=== PATIENT | female | born 1960 | race American Indian/Alaskan Native ===

== ENCOUNTER 2018-02-14 13:05 | Emergency (ER) | payer MEDICARE, OTHER ==
[2018-02-14 13:05] VITALS: BMI 63.8
[2018-02-14 14:00] LABS: BASO % 0.3 % (0.0-2.0); EOS # 0.2 K/uL (0.0-0.7); EOS % 1.5 % (0.0-4.0); HEMOGLOBIN 13.3 g/dL (11.0-16.0); LYMPH # 2.2 K/uL (1.0-4.3); LYMPH % 19.5 % (20.0-40.0); MEAN CELL VOLUME 86.2 fL (81.0-99.0); MEAN CORPUSCULAR HEMOGLOBIN 29.3 pg (27.0-31.0); MEAN CORPUSCULAR HGB CONC 33.9 g/dL (33.0-37.0); MEAN PLATELET VOLUME 8.2 fL (7.2-11.7); MONO # 0.7 K/uL (0.0-0.8); MONO % 6.4 % (0.0-10.0); NEUT # 8.1 K/uL (1.8-7.0); NEUT % 72.3 % (50.0-75.0); RBC 4.56 Mil/uL (3.80-5.20); RED CELL DISTRIBUTION WIDTH 15.4 % (11.5-14.5); WHITE BLOOD COUNT 11.2 K/uL (4.8-10.8)
[2018-02-14] MEDS ORDERED: Sodium Chloride 0.9% 1,000 ML IV ONE (14:00)
[2018-02-14 14:12] LABS: ALBUMIN 3.8 g/dL (3.5-5.0); ALT/SGPT 19 U/L (9-52); AST/SGOT 22 U/L (14-36); BLOOD UREA NITROGEN 21 mg/dL (7-17); CALCIUM 9.5 mg/dl (8.6-10.4); GFR AFRICAN-AMERICAN > 60; GFR NON-AFRICAN AMERICAN > 60
--- NOTE | 2018-02-14 14:12 | RAD ---
HISTORY: Palpations COMPARISON: Chest radiograph dated 01/08/2016 TECHNIQUE: Chest PA and lateral FINDINGS: LUNGS: No active pulmonary disease. PLEURA: No significant pleural effusion identified. No pneumothorax apparent. CARDIOVASCULAR: Atherosclerotic aortic calcifications. Cardiomediastinal silhouette stably enlarged. OSSEOUS STRUCTURES: Unchanged. VISUALIZED UPPER ABDOMEN: Normal. OTHER FINDINGS: None. IMPRESSION: No active disease.
--- NOTE | 2018-02-14 14:52 | C.PDOC ---
History Of Present Illness 57yo female, presents to ED for evaluation of sudden onset dizziness, lightheadedness described as a room spinning sensation since 1130 this morning. Patient also reports associated 2 episodes of bilious vomiting. She denies any such episodes in the past. She is currently on a Xarelto regimen as well. She has no other medical complaints. PMD: Harmeet White Time Seen by Provider: 02/14/18 13:23 Chief Complaint (Nursing): Dizziness/Lightheaded History Per: Patient History/Exam Limitations: no limitations Onset/Duration Of Symptoms: Hrs (11:30 am today) Current Symptoms Are (Timing): Still Present Associated Symptoms Preceding Syncopal Episode: Lightheadedness, Vertigo Worse With Change In Head Position Past Medical History Reviewed: Historical Data, Nursing Documentation, Vital Signs Vital Signs: Last Vital Signs Temp 98.2 F 02/14/18 21:40 Pulse 82 02/14/18 21:40 Resp 22 02/14/18 21:40 BP 176/82 H 02/14/18 21:40 Pulse Ox 92 L 02/14/18 21:45 - Medical History PMH: Asthma, Atrial Fibrillation, Bronchitis, Diabetes, HTN, Hypercholesterolemia, Hyperlipidemia, Kidney Stones Surgical History: Denies: Pacemaker Other Surgeries: partial hysterectomy not involving ovaries Family History: States: No Known Family Hx, Unknown Family Hx - Social History Hx Tobacco Use: No Hx Alcohol Use: No Hx Substance Use: No - Immunization History Hx Tetanus Toxoid Vaccination: No Hx Influenza Vaccination: No Hx Pneumococcal Vaccination: No Review Of Systems Except As Marked, All Systems Reviewed And Found Negative. Constitutional: Negative for: Fever, Chills Eyes: Negative for: Pain, Vision Change ENT: Negative for: Ear Pain, Ear Discharge, Nose Pain Cardiovascular: Positive for: Light Headedness. Negative for: Chest Pain, Palpitations, Orthopnea, Paroxysmal Noc. Dyspnea Respiratory: Negative for: Cough, Shortness of Breath, Hemoptysis, SOB with Excertion, Pleuritic Pain, Sputum Gastrointestinal: Positive for: Vomiting. Negative for: Abdominal Pain, Diarrhea Genitourinary: Negative for: Dysuria Skin: Negative for: Rash Neurological: Positive for: Dizziness. Negative for: Weakness Psych: Negative for: Anxiety, Depression Physical Exam - Physical Exam Appears: Non-toxic, No Acute Distress, Other (morbidly obese) Skin: Normal Color, Warm, Dry Head: Atraumatic, Normacephalic Eye(s): bilateral: Normal Inspection Ear(s): Bilateral: Normal Nose: Normal Oral Mucosa: Moist Tongue: Normal Appearing Lips: Normal Appearing Gingiva: Normal Appearing Throat: Normal Neck: Normal, Normal ROM, Supple Cardiovascular: Rhythm Regular Respiratory: Normal Breath Sounds Gastrointestinal/Abdominal: Normal Exam, Soft, No Tenderness Back: Normal Inspection Extremity: Normal ROM, No Deformity Neurological/Psych: Oriented x3, Normal Speech, Normal Cognition, Normal Cranial Nerves, Cerebellar Signs (normal), Normal Motor (5/5 motor strength bilateral lower extremities; 5/5 processing associate strength bilateral upper extremities), Normal Sensation Gait: Steady ED Course And Treatment - Laboratory Results Result Diagrams: 02/14/18 13:57 02/14/18 13:57 O2 Sat by Pulse Oximetry: 92 Medical Decision Making Medical Decision Making: Impression: Dizziness/lightheadedness Plan: -- Labs -- CXR -- EKG -- IV Fluids -- IV Reglan -- Meclizine PO Time: 1533 Labs reviewed with no clinically significant abnormalities. CXR reviewed and indicates questionable right lower lobe pneumonia. Time: 1723 On re-evaluation, patient with persistent dizziness, worse with getting up. Valium 5mg PO and Zofran OTD 4mg PO given. CT Head w/o contrast ordered. \ Time: 1800 CT Head FINDINGS: HEMORRHAGE: No intracranial hemorrhage. BRAIN: No mass effect or edema. No atrophy or chronic microvascular ischemic changes. VENTRICLES: Unremarkable. No hydrocephalus. CALVARIUM: Unremarkable. PARANASAL SINUSES: Unremarkable as visualized. No significant inflammatory changes. MASTOID AIR CELLS: Unremarkable as visualized. No inflammatory changes. OTHER FINDINGS: None. IMPRESSION: No acute intracranial abnormalities. No significant findings to account for the clinical presentation. Time: 2117 Patient awake, alert and oriented x 3 with steady gait. She is ambulatory and denies any dizziness. Stable for discharge home. Disposition Counseled Patient/Family Regarding: Diagnosis - Disposition Referrals: Alondra White MD [Staff Provider] - Disposition: HOME/ ROUTINE Disposition Time: 21:44 Condition: GOOD Additional Instructions: return if symptoms return or worsen Prescriptions: Meclizine HCl 25 mg PO TID PRN 3 Days #9 tablet PRN Reason: Dizziness Instructions: Vertigo (a Type of Dizziness) Forms: [facility] (Armenian) - Clinical Impression Clinical Impression: Vertigo - Scribe Statement The provider has reviewed the documentation as recorded by the Scribe (Rosey Akbar) Provider Attestation: All medical record entries made by the Scribe were at my direction and personally dictated by me. I have reviewed the chart and agree that the record accurately reflects my personal performance of the history, physical exam, medical decision making, and the department course for this patient. I have also personally directed, reviewed, and agree with the discharge instructions and disposition.
[2018-02-14 16:03] LABS: SQUAMOUS EPITHIAL 9 /hpf (0-5); URINE BACTERIA RARE (<OCC); URINE BILIRUBIN NEGATIVE (NEGATIVE); URINE BLOOD 1+ (NEGATIVE); URINE CLARITY Hazy (Clear); URINE COLOR Yellow (YELLOW); URINE GLUCOSE (UA) NORMAL (Normal); URINE LEUKOCYTE ESTERASE 3+ Leu/uL (Negative); URINE PROTEIN NEGATIVE (NEGATIVE); URINE UROBILINOGEN NORMAL mg/dL (0.2-1.0)
--- NOTE | 2018-02-14 18:21 | CT ---
PROCEDURE: CT HEAD WITHOUT CONTRAST. HISTORY: vertigo COMPARISON: None available. TECHNIQUE: Axial computed tomography images were obtained through the head/brain without intravenous contrast. Coronal and sagittal reconstructed images. Radiation dose: Total exam DLP = 1162.06 mGy-cm. This CT exam was performed using one or more of the following dose reduction techniques: Automated exposure control, adjustment of the mA and/or kV according to patient size, and/or use of iterative reconstruction technique. FINDINGS: HEMORRHAGE: No intracranial hemorrhage. BRAIN: No mass effect or edema. No atrophy or chronic microvascular ischemic changes. VENTRICLES: Unremarkable. No hydrocephalus. CALVARIUM: Unremarkable. PARANASAL SINUSES: Unremarkable as visualized. No significant inflammatory changes. MASTOID AIR CELLS: Unremarkable as visualized. No inflammatory changes. OTHER FINDINGS: None. IMPRESSION: No acute intracranial abnormalities. No significant findings to account for the clinical presentation.
[2018-02-14 21:41] VITALS: BP 176/82; PULSE 82; RESP 22; TEMP 98.2
[2018-02-14 21:45] VITALS: O2SAT 92
--- NOTE | 2018-02-15 12:27 | CARD ---
APPROVED REPORT EKG Measurement Heart [id number] <Conclusion> Normal sinus rhythm Normal ECG
== END 2018-02-14 22:08 | disposition home or self-care (01) ==
LOC: C.ER 13:05
DX: R42 Dizziness and giddiness (principal)
CPT/HCPCS: 70450; 71046; 80053; 81001; 82948; 84484; 85025; 93005; 96374; 99285; J2765; J7040

== ENCOUNTER 2018-04-23 21:56 | Emergency (ER) | payer MEDICARE, OTHER ==
[2018-04-23 21:57] VITALS: BMI 63.8
[2018-04-23 22:12] VITALS: BP 146/83; PULSE 90; RESP 16; TEMP 98; O2SAT 100
--- NOTE | 2018-04-23 23:09 | C.PDOC ---
History Of Present Illness 57 yo female BIBA for evaluation of lower lip contusion, Left knee and Right hand contusion sustained [employer] after sustained mechanical fall at home. Pt sts, tripped and fell down, landed onto Left side of body," hit my Left knee hard". Pt admits, was unable to bear weight on Left leg due to pain over Left knee after the injury. Otherwise, pt denies head injury, LOC, syncope, headache, dizziness, visual changes,focal deficits, neck pain, CP, SOB, dyspnea, drooling , abd. pain, N/V, denies obvious deformity, sensory or vascular deficits to B/L UEs and LEs. At the time of evaluation, AAO#3, not in any apparent distress. Time Seen by Provider: 04/23/18 22:01 Chief Complaint (Nursing): Lower Extremity Problem/Injury History Per: Patient Past Medical History Reviewed: Historical Data, Nursing Documentation, Vital Signs Vital Signs: Last Vital Signs Temp 98 F 04/23/18 22:08 Pulse 90 04/23/18 22:08 Resp 16 04/23/18 22:08 BP 146/83 04/23/18 22:08 Pulse Ox 100 04/23/18 23:14 - Medical History PMH: Asthma, Atrial Fibrillation, Bronchitis, Diabetes, HTN, Hypercholesterolemia, Hyperlipidemia, Kidney Stones Other PMH: Morbid obesity Surgical History: Denies: Pacemaker Family History: States: Unknown Family Hx - Social History Hx Tobacco Use: No Hx Alcohol Use: No Hx Substance Use: No - Immunization History Hx Tetanus Toxoid Vaccination: No Hx Influenza Vaccination: No Hx Pneumococcal Vaccination: No Review Of Systems Except As Marked, All Systems Reviewed And Found Negative. Constitutional: Negative for: Fever, Chills Eyes: Negative for: Vision Change ENT: Negative for: Ear Discharge, Nose Discharge, Throat Pain Cardiovascular: Negative for: Chest Pain Respiratory: Negative for: Cough, Shortness of Breath, Wheezing Gastrointestinal: Negative for: Nausea, Vomiting, Abdominal Pain, Diarrhea Genitourinary: Negative for: Dysuria, Incontinence Musculoskeletal: Positive for: Hand Pain (Right thumb), Leg Pain (Left knee pain ). Negative for: Neck Pain, Back Pain Skin: Negative for: Rash, Lesions, Bruising Neurological: Negative for: Weakness, Numbness, Headache, Dizziness Physical Exam - Physical Exam Appears: Well, Non-toxic, No Acute Distress Skin: Normal Color, Warm, No Rash Head: Atraumatic, Normacephalic Eye(s): bilateral: PERRL Ear(s): Bilateral: Normal Nose: No Flaring, No Discharge, No Deformity, No Tenderness Oral Mucosa: Moist, No Drooling, No Trismus Tongue: Normal Appearing Lips: No Swelling, Laceration (small avulsion noted to middle lower lip. No edema.) Throat: No Erythema, No Drooling Neck: Normal ROM, Trachea Midline, No Midline Cervical Tenderness, No Paracervical Tenderness, No Step Off Deformity, Supple Chest: Symmetrical, No Deformity, No Tenderness Cardiovascular: Rhythm Regular Respiratory: No Decreased Breath Sounds, No Accessory Muscle Use, No Stridor, No Wheezing Gastrointestinal/Abdominal: Soft, No Tenderness, No Distention, No Guarding Back: No Vertebral Tenderness, No Paraspinal Tenderness Extremity: Normal ROM (disomfort on Left knee flexion due to pain, otherwise, FAROM of B/L UEs and LEs.), Tenderness (anterior aspect left knee, and over Right 1st MCPJ. No palpable deformity.), No Deformity, No Swelling Neurological/Psych: Oriented x3, Normal Speech, Normal Motor, Normal Sensation, Normal Reflexes ED Course And Treatment O2 Sat by Pulse Oximetry: 100 Pulse Ox Interpretation: Normal - Other Rad Pelvis w/B/L hips X-Ray: Interpreted by Me, Viewed By Me Interpretation: (-) acute fx or dislocation Left knee X-Ray: Interpreted by Me, Viewed By Me Interpretation: (+) DJD, no acute fx or dislocation Right thumb X-Ray: Interpreted by Me, Viewed By Me Interpretation: (+)sesamoid bone 1st MCPJ, DJD, no acute fx or dislocation. Progress Note: On re-evaluation, pt is afebrile, hemodynamicaly stable. Pt was able to ambulate in ED with baseline gait. Head: AT/NC. ENT: smalllower lip avulsion. No drooling, no trismus. Neck: Supple, (-) midline tenderness. Lungs : CTA B/L, BS equal B/L. ABd: benign. Extr: tenderness over anterior aspect Left knee and over Right 1st MCPJ. No palpable deformity, no neuorvascular deficits. Neurologicaly intact. Imagings review and appears without acute findings. Jacob wrap applied to Left knee ( knee immobilizer not available in proper size). Pt has clinical findings c/w Left knee contusion, Right thumb sprain, head injury with lower lip avulsion. Pt advised OBS 48 hrs for any sign of head injury-return to ED if any new changes. ref. to f/u with PMD, Ortho in 2 -3 days for re-eavl. Disposition Counseled Patient/Family Regarding: Studies Performed, Diagnosis, Need For Followup, Rx Given - Disposition Referrals: Alondra White MD [Staff Provider] - Ayaz Nice III, MD [Staff Provider] - Disposition: HOME/ ROUTINE Disposition Time: 23:10 Condition: STABLE Additional Instructions: OBSERVE 48 HRS FOR ANY SIGN OF HEAD INJURY-INTRACTABLE HEADACHE, VOMITING, VISUAL CHANGES, LETHARGY OR ANY OTHER NEW CHANGES-RETURN TO ED IMMEDIATELY FOR RE-EVALUATION. RICE-rest,ice,compression, elevation take medication as prescribed Follow p with PMD, Orthopedist in 2-3 days for re-evaluation. return to Ed if any worsening or new changes. Prescriptions: traMADol [Ultram] 50 mg PO TID #7 tab Instructions: Knee Sprain (DC), Finger Sprain (DC), Minor Head Injury Forms: [facility] (Gabonese) - Clinical Impression Clinical Impression: Knee contusion, Finger sprain, Lip injury
--- NOTE | 2018-04-24 12:14 | RAD ---
PROCEDURE: Radiographs of the pelvis and bilateral hips HISTORY: injury COMPARISON: None. FINDINGS: BONES: Pelvis: Unremarkable. Right hip:Unremarkable. Left hip:Unremarkable. JOINTS: Right hip: Severe degenerative changes are noted. Left hip: Moderate to severe degenerative changes. Sacroiliac Joints: Arthritic changes at the sacroiliac joints. Pubic symphysis: Unremarkable. SOFT TISSUES: Normal. OTHER FINDINGS: None. IMPRESSION: Severe right and [id number] left osteoarthritic changes at the hip joints. No evidence of acute fracture or dislocation.
--- NOTE | 2018-04-24 12:16 | RAD ---
Date of service: 04/23/2018 PROCEDURE: Right Thumb radiographs. HISTORY: injury COMPARISON: None. TECHNIQUE: AP radiograph of the right hand, as well as spot oblique and lateral images of thumb were obtained. FINDINGS: RIGHT THUMB: Normal right thumb, without fracture or focal lesion. Remainder of the right hand (as seen on the AP view) grossly unremarkable. JOINTS: Normal. SOFT TISSUES: Normal. OTHER FINDINGS: None. IMPRESSION: No evidence of acute fracture or dislocation.
--- NOTE | 2018-04-24 12:27 | RAD ---
Date of service: 04/23/2018 PROCEDURE: Left Knee Radiographs. HISTORY: Pain. COMPARISON: None. FINDINGS: BONES: Normal. No fracture. JOINTS: Severe osteoarthritic changes are noted. JOINT EFFUSION: Small joint effusion. OTHER FINDINGS: None. IMPRESSION: Moderate to severe osteoarthritic changes.
== END 2018-04-23 23:47 | disposition home or self-care (01) ==
LOC: C.ER 21:56
DX: S01.501A Unspecified open wound of lip, initial encounter (principal); S80.02XA Contusion of left knee, initial encounter; S63.601A Unspecified sprain of right thumb, initial encounter; W01.0XXA Fall on same level from slipping, tripping and stumbling without subsequent striking against object, initial encounter; Y92.009 Unspecified place in unspecified non-institutional (private) residence as the place of occurrence of the external cause